=== PATIENT | male | born 1975 | race Caucasian/White ===

== ENCOUNTER 2019-09-07 01:17 | Day surgery (SDC) | payer OTHER, SELFPAY ==
[2019-08-27 13:45] VITALS: BMI 33.7
[2019-09-07] VITALS (7 sets, daily range): BP systolic 123–173; BP diastolic 66–92; PULSE 50–89; RESP 16–24; TEMP 36.2–36.7; O2SAT 92–100
[2019-09-07] MEDS: LACTATED RINGERS 1,000 ML 30 ML IV CONT ×2 (10:40→13:10)
--- NOTE | 2019-09-07 10:48 | WPDANESEPPF ---
Anes - Initial Pre Proc Eval Procedure: Operation Date: 09/07/19 12:00 Proposed Procedures p Ventral Hernia Repair With Mesh - David Rosales DO Date/Time: 09/07/19 10:48 Surgeon: David Rosales DO Pre Op Diagnosis: Ventral Hernia Patient Data Age: 44 Gender: M Height: 6 ft 3 in Weight: 123.7 kg Last Vital Signs Temp 97.1 F L 09/07/19 10:21 Pulse 50 L 09/07/19 10:21 Resp 16 09/07/19 10:21 BP 123/82 09/07/19 10:21 Pulse Ox 100 09/07/19 10:21 Allergies Allergy/AdvReac Type Severity Reaction Status Date / Time No Known Allergies Allergy Verified 08/27/19 14:15 Home Medications Medication Instructions Recorded Confirmed Type cetirizine 10 mg tablet 10 mg PO DAILY 08/21/19 08/27/19 History Patient hx anesthesia problems: none Family hx anesthesia problems: none PMFSH Social History Social History Smoking status: Never smoker Alcohol intake: current Gender identity (if verbalized by the patient): Male Anes - Eval Final PreProcedure Day of Procedure 09/07/19 10:48 Patient weight: obese Heart: regular rate and rhythm Lungs: clear to auscultation Airway: Mallampati scale class II Neurological: alert and oriented Last oral intake: >/= 8 hours ASA classification: II Emergent: no Anesthetic plan: proceed Anesthesia type and monitoring: general LMA and standard monitoring Informed Consent: The patient's anesthetic plan and its attendant risks and benefits were discussed with the patient/family/POA. Questions were solicited and answers provided to the satisfaction of the patient/family/POA.
--- NOTE | 2019-09-07 11:56 | WPDHPUPDATE1 ---
History and Physical Update Update Date/Time: 09/07/19 11:56 History and Physical has been reviewed, including an updated exam of the patient. There are NO changes in the patient's condition. Risks, benefits, and alternatives have been discussed and questions answered. Patient agrees to proceed with procedure.
[2019-09-07] MEDS: ceFAZolin 3 GM/D5W 100 ML 100 ML IVPB (12:02)
[2019-09-07] MEDS: IBUPROFEN IV 800 MG/200 ML 800 MG/200 ML BAG 400 MG IVPB (12:04)
[2019-09-07] MEDS: BUPIVACAINE/EPINEPHRINE 0.5% 30 ML VIAL INFILTRATE (12:22)
--- NOTE | 2019-09-07 13:08 | PM.PROC ---
Procedure Note - Detailed Date of procedure: 09/07/19 Pre-op diagnosis: Ventral Hernia Post-op diagnosis: same Procedure performed: Ventral hernia repair with 6.6 cm Parietex ventral patch Description of procedure: Procedure as well as risks, benefits, and alternatives were discussed with the patient. Written consent was obtained and placed in chart prior to procedure. Patient was brought back to surgical suite. He was placed supine on operating table. He was then intubated by Anesthesia Department. His abdomen was prepped and draped in sterile fashion using chlorhexidine prep. 0.5% bupivacaine with epinephrine was infiltrated locally around the operative area. A 4 cm curvilinear incision was made just inferior to the umbilicus using a 15 blade scalpel. Electrocautery was used for hemostasis and for dissection down through the subcutaneous fat. Hernia sac was encountered and this was carefully freed up from surrounding subcutaneous fat using electrocautery. The hernia sac was freed up all the way down to the level of the fascia, and then it was transected using electrocautery. The hernia sac was excised and sent to the lab for pathology. The umbilical stalk was then lifted off of the fascia with electrocautery. The hernia defect was then measured. This was measuring approximately 15 mm. The decision was made to use a 6.6 cm Parietex ventral patch. The peritoneum was cleared under the fascia circumferentially around the hernia using blunt dissection and electrocautery. Once a wide enough pocket was created for the mesh, the mesh was then placed within this preperitoneal pocket and laid out flat centered on the hernia defect. The mesh appeared to be sitting in proper position. The mesh was then secured at the 4 corners using 0 Ethibond U-stitch trans fascial sutures. Once all 4 sutures were placed, the mesh was lifted up against the abdominal wall and appeared to be properly centered on the hernia defect. The fascia of the hernia defect was then reapproximated over the mesh using 0 Ethibond [id number] sutures. The 4 transfascial sutures were then tied down in place. The repair was inspected and appeared secure. 0.5% bupivacaine with epinephrine was infiltrated around the fascia and subcutaneous space. The umbilical stalk was then reapproximated to the fascia using a 3 0 Vicryl simple interrupted suture. The deep dermis was reapproximated using 3 0 Vicryl simple interrupted sutures, and then the skin was approximated using 4 Monocryl running subcuticular suture. Exofin glue was then applied on top. The patient was then awakened from anesthesia, extubated, and transferred to recovery. Implants: 6.6 cm Parietex Ventral Patch Anesthesia: local (0.5% bupivacaine with epinephrine) Surgeon: David Rosales DO Estimated blood loss (mL): 10 Pathology: yes (Hernia sac) Complications: No immediate complications Condition: stable Disposition: same day Findings: This is a 44-year-old man who presents for ventral hernia repair. He reports noticing an umbilical bulge a few months ago. He also notices a bulge in the midline of his abdomen. He does not experience pain with the midline bulge but occasional discomfort with activity at his umbilicus. The bulge reduces when he lays down. He is having regular BM's without difficulty. He denies overlying skin changes. He was found to have a ventral hernia causing slight protrusion of his umbilical skin. Decision was made to proceed with ventral hernia repair with mesh. Ventral hernia repair was performed. The patient was found to have a 1.5 cm ventral hernia just superior to the umbilicus causing slight protrusion of the umbilical skin. The hernia sac was excised and sent to the lab for pathology. A preperitoneal plane was then created for mesh placement, and a 6.6 cm Parietex mesh was placed within the preperitoneal pocket and secured to the fascia using 0 Ethibond U-stitch trans fascial sutures.
== END 2019-09-07 14:40 | disposition home or self-care (01) ==
PROVIDERS: PCP Family Medicine; Referring Provider Urology; Visit Provider Surgery
PROC: 0WQF0ZZ Repair Abdominal Wall, Open Approach (ICD-10-PCS; CPT 49560; principal; 2019-09-07 12:00)
DX: K43.9 Ventral hernia without obstruction or gangrene (principal); E66.9 Obesity, unspecified; Z68.34 Body mass index [BMI] 34.0-34.9, adult
CPT/HCPCS: 49560; 49568; 88300; C1781; J0690; J1100; J1741; J1885; J2250; J2405; J2704; J3010; J7120

== ENCOUNTER 2024-03-10 11:17 | Outpatient (CLI) | payer OTHER, SELFPAY ==
--- NOTE | ~2024-03-10 | XR_ITS ---
XR lumbar spine 2-3V DATE: 03/10/2024 11:31 INDICATION: Skin anesthesia TECHNIQUE: AP, lateral, cone-down lateral lumbosacral views COMPARISON: None FINDINGS: There is multilevel degenerative disc disease, moderate at L1-2, moderately severe L2-3 wit h associated mild retrolisthesis, moderate at L3-4 with mild retrolisthesis, moderate at L4-5 and mod erately severe at L5-S1 with very prominent anterior bridging osteophyte. Prominent degenerative change at the apophyseal joints in the lower lumbar area especially L5-S1. No anterolisthesis is noted. Cannot exclude primary lumbar spinal stenosis. No fracture or bone destruction is detected. The included lower thoracic and lumbar pedicles are inta ct. The sacroiliac joints are intact. IMPRESSION: Multilevel degenerative disc disease Reviewed, dictated and finalized at location J.
--- NOTE | ~2024-03-10 | XR_ITS ---
XR knee RT 3V DATE: 03/10/2024 11:31 INDICATION: Right knee pain TECHNIQUE: 3 views COMPARISON: None FINDINGS: Postsurgical change from anterior cruciate ligament repair. There is a large suprapatellar knee joint effusion. His periarticular spurring at the patellofemoral joint and medial compartment. Medial and lateral com partment joint spaces appear relatively well preserved. 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 No fracture or dislocation, periosteal reaction or bone destruction, radiopaque intra-articular loose body or chondrocalcinosis is noted. Osteopenia. 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 IMPRESSION: Knee joint effusion; no fracture or dislocation Osteoarthritic change involving primarily the patellofemoral and medial compart ments, with preservation of medial compartment lateral compartment joint spaces Status post anterior cruciate ligament repair Osteopenia
== END 2024-03-10 11:18 | disposition home or self-care (01) ==
LOC: ANHIMG 11:21
PROVIDERS: PCP Family Medicine; Visit Provider Physician Assistant Medical
DX: M25.461 Effusion, right knee (principal); M17.11 Unilateral primary osteoarthritis, right knee; G89.29 Other chronic pain; M85.89 Other specified disorders of bone density and structure, multiple sites; Z98.890 Other specified postprocedural states
CPT/HCPCS: 72100; 73562

== ENCOUNTER 2024-09-06 14:45 | Outpatient (RCR) | payer OTHER, SELFPAY ==
[2024-08-07 09:30] VITALS: BMI 30.2
[2024-08-07 09:38] VITALS: BMI 30.2
[2024-09-06 14:55] VITALS: BMI 30.2
== END 2024-11-05 23:59 | disposition home or self-care (01) ==
LOC: ANHDMC 14:45
PROVIDERS: PCP Family Medicine; Visit Provider Physician Assistant Medical
DX: E11.9 Type 2 diabetes mellitus without complications (principal); E78.5 Hyperlipidemia, unspecified; Z71.3 Dietary counseling and surveillance
CPT/HCPCS: 97802; 97803

== ENCOUNTER 2025-04-17 13:28 | Outpatient (CLI) | payer OTHER, SELFPAY ==
--- OUTSIDE RECORDS SUMMARY | 2017-04-12 03:40 | XMS_ITS | Continuity of Care Document ---
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 Name Role Phone Robinson BARROW MD, Masoud Unavailable Unavailable Allergies, Adverse Reactions, Alerts Substance Reaction Status Criticality No Known Drug Allergies Active No I nformation Medications Medication Instructions Dosage Effective Dates (start - stop) Status Comments Zyrtec 10 mg tablet - Active Procedures Procedure Date Office/outpatient visit,[facility] 2016 Advance Directives Directive Yes / No Effective Date File Name No Information Encounters Encounter Description Practice Location Reason(s) For Visit Diagnoses Date Provider Providers Copied on Encounter Office/outpat ient visit,[facility], [facility] [place] [facility], [address], [id number], [place] tel:[phone] [facility] [place] [facility] right shoulder pain (chief complaint) Sprain of right AC joint, initial encounter Apr- 7 Robinson Meredith. [address], [address], [place], [place], [id number] , [place]. tel:[phone] Family History Family Member Type Diagnosis Age At Onset No Information Payers Payer name Insurance type Covered constitution party ID Authoriza ticarroll(s) [facility] CI [id number] Social History Type Description Quantity Date Captured Comments Alcohol Use Details Caffeine Use Details Unknown Tobacco Use Status No Information Smoking Status Never smoker Non-Smoking Tobacco Use Details : No Details Available : No Details Available Sex Male Vital Signs Date / Time: Height Weight BMI Pulse Rate Blood Pressure Temperature Respiratory Rate Body Surface Area Head Circumference Head Circ. Percentile Wt./Burak. Percentile BMI percentile Pulse Ox Inhaled Ox 9:18 AM 75.00 in 108.862 kg (240.00 lbs) 30.0 0 kg/m janet (2) Chief Complaint And Reason For Visit From encounter dated '04/12/2017 08:40'. right shoulder pain (chief complaint). Description: He presents with pain and deformity on the right side. He states that the symptoms have been acute traumatic and began on 10/03/2016. He indicates the injury occurred during sports Ranjit states that the symptoms began as the result of a fall injury. The symptoms occur intermittently. The problem is unchanged. Currently the patient states that the symptoms are moderate-severe. The pain is described as aching and shooting. The symptoms occur with activity. The patient is experiencing pain in the following location: superior shoulder on the right side. He rates his current pain as 5/10. The pain does not radiate. The symptoms are aggravated by daily activities, exercise, lifting, reaching across, reaching behind, reaching overhead and repetitive activities. Ranjit states that the symptoms are relieved by ice, nsaids and rest. In addition to right shoulder pain the patient is also experiencing decreased mobility, spasms, swelling and joint tenderness. Pertinent negatives include joint instability, locking and tingling in the arms. The patient has had a previous x-ray. He has had no previous treatment. Patient has not had any pertinenttherapy for this condition. Patient has had no prior surgeries. There were no previous episodes. Reason For Referral Reason For Referral No Information Plan Of Treatment Date Type Action Status Patient Education Body Mass Index: After Your Visit completed History Of Present Illness Encounter Date Complaint History Of Prese nt Illness right shoulder pain He presents with pain and deformity on the right side. He states that the symptoms have been acute traumatic and began on 10/03/2016. He indicates the injury occurred during sports Ranjit states that the symptoms began as the result of a fall injury. The symptoms occur intermittently. The problem is unchanged. Currently the patient states that the symptoms are moderate-severe. The pain is described as aching and shooting. The symptoms occur with activity. The patient is experiencing pain in the following location: superior shoulder on the right side. He rates his current pain as 5/10. The pain does not radiate. The symptoms are aggravated by daily activities, exercise, lifting, reaching across, reaching behind, reaching overhead and repetitive activities. Ranjit states that the symptoms are relieved by ice, nsaids and rest. In addition to right shoulder pain the patient is also experiencing decreased mobility, spasms, swelling and joint tenderness. Pertinent negatives include joint instability, locking and tingling in the arms. The patient has had a previous x-ray. He has had no previous treatment. Patient has not had any pertinent therapy for this condition. Patient has had no prior surgeries. There were no previous episodes. Functional Status Date Functional Assessmen t No Information Instructions Date Instruction Additional Infor mation Given the patient's injury pattern and all other factors we have agreed upon non-operative treatment. They will utilize a sling for comfort for the next 3-10 days. They will ice, use NSAIDs as needed/able, and start a physical therapy guided rehabilitation program. I would like to see them back in 4-6 weeks for evaluation and likely progression to activities as able. We discussed the possible need for late reconstruction and the indications for this. Questions answered, verbalized understanding. Related to Sprain of right AC joint, initial encounter Assessments Type Assessment Date assessment Sprain of right AC joint, initia l encounter impression We discussed in deta nv the pathophysiology and treatment options of the patient's AC joint injury. We discussed the role of both non-op and operative treatment and the pros and cons of each based on injury pattern, age, activity level, etc. We discussed the role of icing, NSAIDs as needed/able, physical therapy, and appropriate use of a sling in non-op treatment. After discussing the injury in detail the patient and I have agreed to the following plan: Mental Status Date Cognitive Assessment Orientation - [place] ed to time, place, person, situation.Normal Orientation Patient Care Teams Name Effective Dates (start - stop) Status Members No Information
--- NOTE | ~2025-04-17 | XR_ITS ---
XR cervical spine 4-5V Indication: R20.0 - Anesthesia of skin NUMBNESS X 1 YR Comparison: None Findings: No fracture identified, no subluxation flexion-extension The disc heights are intact. Soft tissues unremarkable Impression: No acute abnormality. Reviewed, dictated and finalized at location A. Impression: No acute abnormality.
--- OUTSIDE RECORDS SUMMARY | 2025-04-17 14:10 | XMS_ITS | Clinical Summary ---
Author Organization [employer] [facility] Address [address] [place] [place] [address] Phone Care Team Providers Care Deputy Court Clerk Name Role Phone Erasto Nichole MD Primary Care Provider [phone] Allergies No known active allergies Medications cetirizine (ZyrTEC) 10 mg tablet Take 10 mg by mouth daily. Active indomethacin (INDOCIN) 50 mg capsule Take 1 Capsule (50 mg) by mouth 3 times daily. 21 Capsule 0 04/02/2016 Active HYDROcodone-ministerio taminophen (NORCO) 5-325 mg tablet Take 1-2 Tablet by mouth nightly as needed for Pain, Moderate. Max Daily Amount: 2 Tablet 10 Tablet 0 04/02/2016 Active Active Problems No known active problems Family History Medical History Relation Name Comments Healthy Father Healthy Mother Relation Name Status Comments Father Alive Mother Alive Social History Tobacco Use Types Packs/Day Years Used Date Smoking Tobacco: Never Alcohol Use Standard Drinks/Week Comments Yes 0 (1 standard drink = 0.6 oz pur e alcohol) weekly Sex and Gender Information Value Date Recorded Sex Assigned at Not on file Legal Sex Male 9:40 AM CDT Gender Identity Not on file Sexual Orientation Not on file Last Filed Vital Signs Vital Sign Reading Time Taken Comments Blood Pressure 127/88 04/02/2016 9:50 AM CDT Pulse 75 04/02/2016 9:50 AM CDT Temperature 36.8 C (98.2 F) 04/02/2016 9:50 AM CDT Respiratory Rate 16 04/02/2016 9:50 AM CDT Oxygen Saturation 97% 04/02/2016 9:50 AM CDT Inhaled Oxygen Concentration - - Weight 122.5 kg (270 lb) 04/02/2016 9:50 AM CDT Height 190.5 cm (6' 3) 04/02/2016 9:50 AM CDT Body Mass Index 33.75 04/02/2016 9:50 AM CDT Plan of Treatment Health Maintenance Due Date Last Done Comments DTAP/TDAP/TD VACCINES (1 - Tdap) 1992 HEPATITIS B VACCINES (1 of 3 - 19+ 3-dose series) 07/08 COLORECTAL SCREENING 2018 Colorectal Cancer Screening 2018 FIT-DNA Q 3 years 2018 FIT/FOBT Q 1 year 2018 Flex Sig/CT Colonography Q 5 years 2018 ZOSTER VACCINE (1 of 2) 2023 INFLUENZA VACCINE (#1) 2025 Insurance [employer] PPO [id number] Relationship Specialty Start Date End Date Erasto Nichole MD [address] [place] [address] PCP - General Family Practice 04/02/16
== END 2025-04-17 13:29 | disposition home or self-care (01) ==
PROVIDERS: PCP Family Medicine; Visit Provider Physician Assistant Medical
DX: R20.0 Anesthesia of skin (principal); R20.2 Paresthesia of skin
CPT/HCPCS: 72050